=== PATIENT | male | born 1990 | race Caucasian/White ===

== ENCOUNTER 2017-07-10 13:24 | Emergency (ER) | payer BC ==
[~2017-07-10] VITALS: Ht 177.8 cm; Wt 121.4 kg
[2017-07-10 14:47] LABS: HEMATOCRIT 47.5 % (38.0-50.0); HEMOGLOBIN 16.9 G/DL (12.5-16.6); MCH 30.6 PG (29.0-34.0); MCHC 35.6 G/DL (30.0-36.0); MCV 86.1 FL (86-99); PLATELET COUNT 331 K/uL (156-360); RBC DIS.WIDTH-CV 12.9 % (11.8-14.6); RBC DIS.WIDTH-SD 40.3 % (39-53); RED BLOOD COUNT 5.52 M/uL (4.00-5.50); WHITE BLOOD COUNT 12.7 K/uL (4.1-10.2)
[2017-07-10 14:58] LABS: ALBUMIN 4.7 g/dL (3.2-4.8); CHLORIDE 103 mEq/L (99-109); POTASSIUM 4.2 mEq/L (3.7-5.4); SODIUM 143 mEq/L (136-147)
[2017-07-10 15:01] LABS: GLUCOSE 97 mg/dL (70-99); TOTAL PROTEIN 8.7 g/dL (6.4-8.3)
[2017-07-10 15:02] LABS: TOTAL BILIRUBIN 0.6 mg/dL (0.0-1.0)
[2017-07-10 15:04] LABS: ALKALINE PHOSPHATASE 99 IU/L (3-129); CREATININE 1.1 mg/dL (0.6-1.3)
[2017-07-10 15:05] LABS: UREA NITROGEN (BUN) 10 mg/dL (9-23)
[2017-07-10 15:06] LABS: AST (GOT) 39 IU/L (2-34); GFR ESTIMATE (CALCULATED) > 59 mL/min/ (58.99-99999)
[2017-07-10 15:07] LABS: ALT (GPT) 53 IU/L (3-49)
[2017-07-10 15:08] LABS: LIPASE 29 U/L (1.0-51.0)
[2017-07-10 19:30] LABS: APPEARANCE CLEAR ((CLEAR)); BILIRUBIN NEGATIVE; BLOOD NEGATIVE; COLOR YELLOW ((YELLOW)); GLUCOSE (STRIP) NEGATIVE; KETONES NEGATIVE; LEUKOCYTES NEGATIVE; NITRITE NEGATIVE; PROTEIN (STRIP) NEGATIVE; SPECIFIC GRAVITY 1.025 (1.000-1.030); UCUL ADDED? NO; UROBILINOGEN 0.2 MG/DL (0.2-1.0)
[2017-07-10 19:40] VITALS: BP 129/79
== END 2017-07-10 19:41 | disposition home or self-care (01) ==
LOC: EME 13:24
DX: R19.7 Diarrhea, unspecified (principal)
CPT/HCPCS: 80053; 81003; 83690; 85027; 99281; 99283